=== PATIENT | female | born 1945 | race Caucasian/White ===

== ENCOUNTER 2018-10-09 10:53 | Inpatient (IN) | payer OTHER, MEDICARE ==
[~2018-10-09] VITALS: Ht 162.6 cm; Wt 86.5 kg
[~2018-10-09 10:53] MED LIST: ALLO300T PO; CALC-451 PO; CHLO1CAP PO; CHOL200024 PO; LEVO75TA PO; LOVA20TA2 PO; OMEG1CAP23 PO; OMEP-110 PO; OXYC10TA6 PO; OXYM10TA PO; POTA20TA91 PO; PREG100C PO; TRIA1POW10 PO; TRIA1TAB3 PO; VENL37.52 PO
--- NOTE | 2018-10-09 11:49 | NUR ---
SPIRAL BINDER: PT AMBULATORY FROM LOBBY TO ED 27 IN [facility] AT THIS TIME
[2018-10-09 11:55] LABS: BASOPHILS # (AUTO) 0.09 x10^3/uL (0-0.1); BASOPHILS % (AUTO) 1 % (0-1); EOSINOPHILS # (AUTO) 0.24 x10^3/uL (0-0.4); EOSINOPHILS % (AUTO) 1 % (1-7); LYMPHOCYTES # (AUTO) 2.15 x10^3/uL (1-3.4); LYMPHOCYTES % (AUTO) 12 % (22-44); MD NO; MEAN CORPUSCULAR HEMOGLOBIN 30.1 pg (27.0-34.8); MEAN CORPUSCULAR HGB CONC 34.5 g/dL (32.4-35.8); MEAN CORPUSCULAR VOLUME 87.4 fL (80-100); MEAN PLATELET VOLUME 9.1 fL (7.4-10.4); MONOCYTES % (AUTO) 6 % (2-9); NEUTROPHILS # (AUTO) 13.88 x10^3/uL (1.8-6.8); NEUTROPHILS % (AUTO) 80 % (42-75); PLATELET COUNT 255 x10^3/uL (130-400); RED BLOOD COUNT 4.64 x10^6/uL (3.82-5.3); RED CELL DISTRIBUTION WIDTH 13.4 % (9.6-15.2)
--- NOTE | 2018-10-09 12:01 | NUR ---
ASSUMED CARE OF PT AT THIS TIME FROM LOBBY. AMBULATORY TO ROOM WITH STEADY GAIT, ACCOMPANIED BY SPOUSE. 72 Y/O F PRESENTS STATING "HORRIBLE RIGHT LOWER ABDOMINAL PAIN SINCE 3 AM THIS MORNING AND DIARRHEA MULTIPLE TIMES, LAST NIGHT I HAD REALLY BAD HEART BURN AND WHAT FELT LIKE A HORRIBLE GAS BUBBLE, COUGHING AND MOVING MAKES THE PAIN WORSE." ABD TENDER TO PALPATION RLQ WORSE THAN RUQ, PERIUMBILICAL AND EPIGRASTRIC. +DIARRHEA, DENIES N/V. ISOLATION PRECAUTIONS INTIAITED FOR DIARRHEA. CONT PULSE OX, BP MONITORS APPLIED. VSS. BP ELEVATED, HX HTN. RATES PAIN 03/23. CALL LIGHT IN REACH. FALL PRECUATIONS IN PLACE. AWAITING EVAL BY ERP
[2018-10-09 12:02] LABS: ALBUMIN 3.9 g/dL (3.4-5.0); ANION GAP 9 mmol/L (5-15); CALCIUM 9.1 mg/dL (8.5-10.1); CHLORIDE 103 mmol/L (98-107)
--- NOTE | 2018-10-09 12:04 | NUR ---
PT TO RAD
[2018-10-09 12:05] LABS: ALANINE AMINOTRANSFERASE 31 U/L (12-78); ALKALINE PHOSPHATASE 60 U/L (45-117); BILIRUBIN,TOTAL 0.6 mg/dL (0.2-1.0); CREATININE 0.96 mg/dL (0.55-1.02); TOTAL PROTEIN 7.6 g/dL (6.4-8.2)
[2018-10-09] MEDS ORDERED: GABA300C10 PO (12:13)
--- NOTE | 2018-10-09 12:29 | NUR ---
PT BACK FROM RAD, NAD NOTED. AWAITING EVAL BY ERP. SPOUSE AT BEDSIDE
[2018-10-09 12:32] LABS: MICROSCOPIC NOT IND
[2018-10-09 12:33] LABS: CULTURE INDICATED? NO
--- NOTE | 2018-10-09 12:45 | NUR ---
PT UP FOR RECHECK, AWAITING EVAL BY ERP
--- NOTE | 2018-10-09 12:52 | NUR ---
DR. DRUMMOND AT BEDSIDE FOR EVALUATION, DISCUSSING POC AND TEST RESULTS WITH PT AND SPOUSE.
[2018-10-09] MEDS ORDERED: SODIUM CHLORIDE FLUSH 10ML SYR IVF ONE (13:00)
--- NOTE | 2018-10-09 13:34 | NUR ---
IV PLACED FOR CT. PT RESTING IN POSITION OF COMFORT. WATCHING TV WITH SPOUSE. CT CALLED AND NOTIFIED PT READY FOR EXAM. PT LAST ATE/DRANK AT 0900- ACTIVA YOGURT, WATER, SODA. CALL LIGHT IN REACH. SPOUSE AT BEDSIDE. VSS. RATES PAIN 8/10, REFUSES NEED FOR PAIN MEDICATION "I DON'T WANT ANY PAIN MEDICINE."
--- NOTE | 2018-10-09 13:56 | NUR ---
PT IN CT
[2018-10-09] MEDS ORDERED: OMNIPAQUE 350 MG/ML, 100ML BOTTLE ONE (14:08)
--- NOTE | 2018-10-09 14:10 | NUR ---
PT BACK FROM CT. AMBULATORY TO RESTROOM WITH STEADY GAIT, +/SUCCESSFUL VOID, DENIES ANY DIARRHEA, "HAVEN'T HAD THE DIARRHEA SINCE 0730 AM TODAY." RESTING COMFORTABLY. REFUSES NEED FOR PAIN MEDICATION. WATCHING TV IN POSITION OF COMFORT. VSS. CALL LIGHT IN REACH.
--- NOTE | 2018-10-09 14:19 | NUR ---
BEDSIDE REPORT AND CARE TO FLORENTINO GAN RN AT THIS TIME
--- NOTE | 2018-10-09 14:20 | NUR ---
RECEIVED REPORT FROM CELI JOHNSON, PT RESTING IN ROOM WITH FAMILY AT BEDSIDE.AWAITING CT RESULTS AT THIS TIME
--- NOTE | 2018-10-09 14:21 | NUR ---
ALL RESULTS BACK AT THIS TIME, CHART UP FOR RECHECK
--- NOTE | 2018-10-09 14:29 | NUR ---
MD TO BEDSIDE TO UPDATE PT AND FAMILY ON POC.
--- NOTE | 2018-10-09 15:17 | NUR ---
PT RESTING IN ROOM WITH FAMILY AT BEDSIDE. PT REPORTING 8/10 PAIN, MD NOTIFIED ORDERS RECEIVED. PT TO BE MEDICATED. PT REQUESTING ICE CHIPS, VERIFIED WITH MD PT IS TO STAY STRICT NPO.
[2018-10-09] MEDS ORDERED: MORPHINE SULFATE 4 MG/ML, 1ML ONE (15:19)
[2018-10-09] MEDS ORDERED: MORPHINE SULFATE 4 MG/ML, 1ML IVPush PRN (15:30)
--- NOTE | 2018-10-09 16:03 | NUR ---
SURG IN TO EVAL PT
--- NOTE | 2018-10-09 16:05 | NUR ---
ADMIT NO SURG AT THIS TIME PER ELIEZER
--- NOTE | 2018-10-09 17:06 | NUR ---
REPORT GIVEN TO ANGELA JOHNSON, PT READY FOR TRANSPORT TO FLOOR
[2018-10-09 17:59] VITALS: BP 146/72
[2018-10-09] MEDS ORDERED: ONDANSETRON ODT 4 MG PO PRN (18:00)
[2018-10-09] MEDS ORDERED: PIPERACILLIN/TAZO/PMX 4.5GM 100 ML IV ONE (18:00)
[2018-10-09] MEDS ORDERED: HYDROmorphone 2 MG/ML, 1ML ONE (18:38)
[2018-10-09] MEDS: ENOXAPARIN 40 MG/0.4 ML SQ SCH (18:42)
[2018-10-09] MEDS: PIPERACILLIN/TAZO/PMX 4.5GM 100 ML IVPB SCH (18:42)
[2018-10-09] MEDS: HYDROmorphone 1 MG/ML, 1ML IV PRN (18:43)
[2018-10-09] MEDS: SODIUM CHLORIDE 0.9% 1,000 ML IV SCH (18:44)
[2018-10-09 20:01] VITALS: BP 131/74
[2018-10-10] MEDS: PIPERACILLIN/TAZO/PMX 4.5GM 100 ML IVPB SCH ×4 (00:24→18:22)
[2018-10-10 00:36] VITALS: BP 117/73
[2018-10-10] MEDS: SODIUM CHLORIDE 0.9% 1,000 ML IV SCH (04:10)
[2018-10-10 05:30] LABS: ANION GAP 8 mmol/L (5-15); CALCIUM 8.5 mg/dL (8.5-10.1); CHLORIDE 100 mmol/L (98-107)
[2018-10-10 05:31] LABS: MEAN CORPUSCULAR HEMOGLOBIN 30.1 pg (27.0-34.8); MEAN CORPUSCULAR HGB CONC 34.7 g/dL (32.4-35.8); MEAN CORPUSCULAR VOLUME 86.7 fL (80-100); MEAN PLATELET VOLUME 9.9 fL (7.4-10.4); PLATELET COUNT 236 x10^3/uL (130-400); RED BLOOD COUNT 4.41 x10^6/uL (3.82-5.3); RED CELL DISTRIBUTION WIDTH 13.6 % (9.6-15.2)
[2018-10-10 05:50] LABS: MD YES
[2018-10-10 05:52] LABS: <PLATELET ESTIMATE> ADEQUATE; <PLT MORPHOLOGY> NORMAL PLT MORPH; <RBC MORPHOLOGY> NORMAL; BAND#(MANUAL) 0.22 x10^3/uL; BANDS%(MANUAL) 1 % (0-7); LYMPHS% (MANUAL) 25 % (22-44); MONOS#(MANUAL) 1.54 x10^3/uL (0.3-2.7); MONOS% (MANUAL) 7 % (2-9); SEG#(MANUAL) 14.74 x10^3/uL (1.8-6.8); SEGS% (MANUAL) 67 % (42-75)
[2018-10-10] MEDS: ONDANSETRON 2MG/ML, 2ML IV PRN ×2 (06:49→12:00)
[2018-10-10 08:43] VITALS: BP 126/71
[2018-10-10] MEDS ORDERED: metroNIDAZOLE 500 MG TABLET PO SCH (09:30)
[2018-10-10 10:20] LABS: CLOSTRIDIUM DIFFICILE ANTIGEN NEGATIVE; CLOSTRIDIUM DIFFICILE TOXIN NEGATIVE (Negative)
[2018-10-10] MEDS: NS + 40MEQ KCL 1,000 ML IV SCH ×2 (11:00→21:34)
[2018-10-10] MEDS ORDERED: HYDROmorphone 2 MG/ML, 1ML ONE ×2 (11:22→21:30)
[2018-10-10] MEDS: HYDROmorphone 1 MG/ML, 1ML IV PRN ×2 (12:00→21:35)
[2018-10-10 12:06] VITALS: BP_SYST 115; BP_SYST 132; BP_DIAS 69; BP_DIAS 84
[2018-10-10 15:55] LABS: BASOPHILS # (AUTO) 0.04 x10^3/uL (0-0.1); BASOPHILS % (AUTO) 0 % (0-1); EOSINOPHILS # (AUTO) 0.06 x10^3/uL (0-0.4); EOSINOPHILS % (AUTO) 0 % (1-7); LYMPHOCYTES # (AUTO) 2.45 x10^3/uL (1-3.4); LYMPHOCYTES % (AUTO) 15 % (22-44); MD NO; MEAN CORPUSCULAR HEMOGLOBIN 29.3 pg (27.0-34.8); MEAN CORPUSCULAR HGB CONC 33.6 g/dL (32.4-35.8); MEAN CORPUSCULAR VOLUME 87.1 fL (80-100); MEAN PLATELET VOLUME 9.5 fL (7.4-10.4); MONOCYTES # (AUTO) 1.09 x10^3/uL (0.2-0.8); MONOCYTES % (AUTO) 7 % (2-9); NEUTROPHILS # (AUTO) 12.58 x10^3/uL (1.8-6.8); NEUTROPHILS % (AUTO) 78 % (42-75); PLATELET COUNT 233 x10^3/uL (130-400); RED BLOOD COUNT 4.23 x10^6/uL (3.82-5.3); RED CELL DISTRIBUTION WIDTH 13.3 % (9.6-15.2)
[2018-10-10] MEDS: ENOXAPARIN 40 MG/0.4 ML SQ SCH (18:22)
[2018-10-10 18:44] VITALS: BP 147/77
[2018-10-11 01:27] VITALS: BP 119/61
[2018-10-11] MEDS: PIPERACILLIN/TAZO/PMX 4.5GM 100 ML IVPB SCH ×3 (01:41→12:31)
[2018-10-11 05:06] LABS: BASOPHILS # (AUTO) 0.04 x10^3/uL (0-0.1); BASOPHILS % (AUTO) 0 % (0-1); EOSINOPHILS # (AUTO) 0.11 x10^3/uL (0-0.4); EOSINOPHILS % (AUTO) 1 % (1-7); LYMPHOCYTES # (AUTO) 3.25 x10^3/uL (1-3.4); LYMPHOCYTES % (AUTO) 20 % (22-44); MD NO; MEAN CORPUSCULAR HGB CONC 34.3 g/dL (32.4-35.8); MEAN CORPUSCULAR VOLUME 87.6 fL (80-100); MEAN PLATELET VOLUME 9.1 fL (7.4-10.4); MONOCYTES # (AUTO) 1.04 x10^3/uL (0.2-0.8); MONOCYTES % (AUTO) 7 % (2-9); NEUTROPHILS # (AUTO) 11.47 x10^3/uL (1.8-6.8); NEUTROPHILS % (AUTO) 72 % (42-75); PLATELET COUNT 227 x10^3/uL (130-400); RED BLOOD COUNT 4.39 x10^6/uL (3.82-5.3); RED CELL DISTRIBUTION WIDTH 13.4 % (9.6-15.2)
[2018-10-11 05:19] LABS: ANION GAP 7 mmol/L (5-15); CALCIUM 8.3 mg/dL (8.5-10.1); CHLORIDE 107 mmol/L (98-107)
[2018-10-11] MEDS: NS + 40MEQ KCL 1,000 ML IV SCH (06:27)
[2018-10-11 07:37] VITALS: BP 120/53
[2018-10-11] MEDS ORDERED: POTASSIUM CHLORIDE 40 MEQ in SODIUM CHLORIDE 0.9% 500 ML IV ONE ×2 (08:00→13:30)
[2018-10-11] MEDS ORDERED: OMNIPAQUE 350 MG/ML, 100ML BOTTLE ONE (10:13)
[2018-10-11] MEDS: ONDANSETRON 2MG/ML, 2ML IVPush PRN (12:19)
[2018-10-11 12:50] VITALS: BP 160/79
[2018-10-11] MEDS: GABAPENTIN 300 MG CAPSULE PO SCH ×2 (16:11→20:14)
[2018-10-11] MEDS: LACTOBACILLUS CHEW TABLET PO SCH ×2 (16:11→20:14)
[2018-10-11] MEDS: POTASSIUM CHLORIDE 20 MEQ TAB.ER.PRT PO SCH (17:19)
[2018-10-11] MEDS: PIPERACILLIN/TAZO/PMX 3.375GM 50 ML IV SCH (18:01)
[2018-10-11] MEDS: ENOXAPARIN 40 MG/0.4 ML SQ SCH (18:01)
[2018-10-11 18:32] VITALS: BP 154/65
[2018-10-11] MEDS: CHOLECALCIFEROL 1,000 UNIT TABLET PO SCH (20:14)
[2018-10-11] MEDS: LOVASTATIN 20 MG TABLET PO SCH (20:14)
[2018-10-12] MEDS: ONDANSETRON 2MG/ML, 2ML IVPush PRN (00:24)
[2018-10-12] MEDS: PIPERACILLIN/TAZO/PMX 3.375GM 50 ML IV SCH ×4 (00:24→18:08)
[2018-10-12 01:20] VITALS: BP 165/83
[2018-10-12 05:10] LABS: ANION GAP 6 mmol/L (5-15); CALCIUM 8.2 mg/dL (8.5-10.1); CHLORIDE 114 mmol/L (98-107); CREATININE 0.82 mg/dL (0.55-1.02)
[2018-10-12 05:16] LABS: BASOPHILS # (AUTO) 0.05 x10^3/uL (0-0.1); BASOPHILS % (AUTO) 0 % (0-1); EOSINOPHILS # (AUTO) 0.15 x10^3/uL (0-0.4); EOSINOPHILS % (AUTO) 1 % (1-7); LYMPHOCYTES # (AUTO) 2.97 x10^3/uL (1-3.4); LYMPHOCYTES % (AUTO) 25 % (22-44); MD NO; MEAN CORPUSCULAR HEMOGLOBIN 29.9 pg (27.0-34.8); MEAN CORPUSCULAR HGB CONC 33.8 g/dL (32.4-35.8); MEAN CORPUSCULAR VOLUME 88.5 fL (80-100); MEAN PLATELET VOLUME 9.5 fL (7.4-10.4); MONOCYTES # (AUTO) 0.74 x10^3/uL (0.2-0.8); MONOCYTES % (AUTO) 6 % (2-9); NEUTROPHILS # (AUTO) 7.87 x10^3/uL (1.8-6.8); NEUTROPHILS % (AUTO) 67 % (42-75); PLATELET COUNT 230 x10^3/uL (130-400); RED BLOOD COUNT 4.17 x10^6/uL (3.82-5.3); RED CELL DISTRIBUTION WIDTH 13.3 % (9.6-15.2)
[2018-10-12] MEDS ORDERED: HYDROmorphone 2 MG/ML, 1ML ONE (06:21)
[2018-10-12] MEDS: HYDROmorphone 1 MG/ML, 1ML IV PRN (06:25)
[2018-10-12 07:00] VITALS: BP 169/82
[2018-10-12] MEDS ORDERED: POTASSIUM CHLORIDE 20 MEQ TAB.ER.PRT PO ONE (08:00)
[2018-10-12] MEDS: LACTOBACILLUS CHEW TABLET PO SCH ×3 (08:19→20:52)
[2018-10-12] MEDS: LEVOTHYROXINE 75 MCG TABLET PO SCH (08:20)
[2018-10-12] MEDS: CHOLECALCIFEROL 1,000 UNIT TABLET PO SCH ×2 (08:20→20:52)
[2018-10-12] MEDS: GABAPENTIN 300 MG CAPSULE PO SCH ×3 (08:20→20:52)
[2018-10-12] MEDS: ALLOPURINOL 300 MG TABLET PO SCH (08:20)
[2018-10-12] MEDS: POTASSIUM CHLORIDE 20 MEQ TAB.ER.PRT PO SCH ×2 (08:20→16:53)
[2018-10-12] MEDS: VENLAFAXINE XR 37.5MG CAP.ER.24H PO SCH (08:20)
[2018-10-12] MEDS ORDERED: TRIAMTERENE-HCTZ 37.5/25 MG TABLET PO SCH (09:00)
[2018-10-12] MEDS ORDERED: TRIAMTERENE 50 MG CAPSULE PO SCH (09:00)
[2018-10-12] MEDS ORDERED: TRIAMTERENE 37.5 MG PO SCH (09:00)
[2018-10-12 14:50] VITALS: BP 154/70
[2018-10-12] MEDS: TRIAMTERENE-HCTZ 37.5/25 MG TABLET PO SCH (15:30)
[2018-10-12] MEDS: ENOXAPARIN 40 MG/0.4 ML SQ SCH (18:09)
[2018-10-12 19:55] VITALS: BP 156/75
[2018-10-12] MEDS: LOVASTATIN 20 MG TABLET PO SCH (20:52)
[2018-10-13] MEDS: PIPERACILLIN/TAZO/PMX 3.375GM 50 ML IV SCH ×3 (00:22→13:19)
[2018-10-13 01:41] VITALS: BP 162/73
[2018-10-13] MEDS: LEVOTHYROXINE 75 MCG TABLET PO SCH (06:17)
[2018-10-13 07:00] VITALS: BP 147/75
[2018-10-13] MEDS: LACTOBACILLUS CHEW TABLET PO SCH (08:08)
[2018-10-13] MEDS: VENLAFAXINE XR 37.5MG CAP.ER.24H PO SCH (08:09)
[2018-10-13] MEDS: GABAPENTIN 300 MG CAPSULE PO SCH (08:09)
[2018-10-13] MEDS: ALLOPURINOL 300 MG TABLET PO SCH (08:09)
[2018-10-13] MEDS: CHOLECALCIFEROL 1,000 UNIT TABLET PO SCH (08:09)
[2018-10-13] MEDS: TRIAMTERENE-HCTZ 37.5/25 MG TABLET PO SCH (08:09)
[2018-10-13] MEDS: POTASSIUM CHLORIDE 20 MEQ TAB.ER.PRT PO SCH (08:09)
[2018-10-13 13:50] VITALS: BP 146/82
[2018-10-13] MEDS ORDERED: METR500T PO (14:36)
[2018-10-13] MEDS ORDERED: LEVO750T26 PO (14:36)
== END 2018-10-13 15:02 | disposition home or self-care (01) | DRG 394 ==
LOC: ED 14:37 → EDIP 16:20 → 4NOR 17:28 → DCLOUNGE 10-13 14:45
PROVIDERS: ADMIT Surgery; ATTEND Surgery
DX: K37 Unspecified appendicitis (principal); K57.32 Diverticulitis of large intestine without perforation or abscess without bleeding; E03.9 Hypothyroidism, unspecified; E78.5 Hyperlipidemia, unspecified; E87.6 Hypokalemia; F32.9 Major depressive disorder, single episode, unspecified; F41.9 Anxiety disorder, unspecified; I10 Essential (primary) hypertension; K21.9 Gastro-esophageal reflux disease without esophagitis; K59.00 Constipation, unspecified; M1A.9XX0 Chronic gout, unspecified, without tophus (tophi); Z90.49 Acquired absence of other specified parts of digestive tract; Z79.891 Long term (current) use of opiate analgesic
CPT/HCPCS: 36415; 74022; 74177; 80048; 80053; 81003; 83605; 83690; 83735; 84100; 85025; 87324; 93005; 96374; 99285; G0378; J1170; J1650; J2405; J2543; J3480; Q9967; J7030; J7040

== ENCOUNTER 2019-03-22 11:21 | Outpatient (CLI) | payer MEDICARE, OTHER | END 2019-03-22 23:59 | disposition home or self-care (01) | LOC: CVU 11:21 | PROVIDERS: ATTEND Internal Medicine Cardiovascular Disease | DX: Z01.810 Encounter for preprocedural cardiovascular examination (principal); I08.1 Rheumatic disorders of both mitral and tricuspid valves; R07.89 Other chest pain; R01.1 Cardiac murmur, unspecified | CPT/HCPCS: 93306 ==

== ENCOUNTER 2020-07-29 12:44 | Outpatient (CLI) | payer OTHER ==
[~2020-07-29 12:44] MED LIST changes: +GABA300C10 PO; +LEVO750T26 PO; +METR500T PO
== END 2020-07-29 23:59 | disposition home or self-care (01) ==
LOC: RAD 12:44
PROVIDERS: ATTEND Family Medicine
DX: Z45.2 Encounter for adjustment and management of vascular access device (principal); M13.862 Other specified arthritis, left knee; Z79.899 Other long term (current) drug therapy; Z72.89 Other problems related to lifestyle
CPT/HCPCS: 36573; C1751

== ENCOUNTER → 2020-08-21 | Outpatient (CLI) | payer OTHER ==
[~2020-08-21] MED LIST changes: +OMNIPAQUE 350 MG/ML, 100ML BOTTLE ONE
== END | disposition home or self-care (01) ==
LOC: RAD 15:50
PROVIDERS: ATTEND Family Medicine
DX: K57.30 Diverticulosis of large intestine without perforation or abscess without bleeding (principal); Z90.49 Acquired absence of other specified parts of digestive tract
CPT/HCPCS: 74177; Q9967